=== PATIENT | male | born 1930 | race Caucasian/White ===

== ENCOUNTER 2017-03-28 22:03 | Emergency (ER) | payer MEDICARE, BC ==
[~2017-03-28] VITALS: Ht 177.8 cm; Wt 90.7 kg
--- NOTE | 2017-03-28 22:14 | NUR ---
BRIT VEGA AT BEDSIDE FOR EVAL.
--- NOTE | 2017-03-28 22:32 | NUR ---
radiology at bedside for l elbow xray.
[2017-03-28 22:47] LABS: CALCIUM, SERUM 9.6 mg/dL (8.5-10.1); CARBON DIOXIDE 27 mmol/L (21-32); CHLORIDE 106 mmol/L (98-107); CREATININE 0.7 mg/dL (0.6-1.3); GLUCOSE 119 mg/dL (74-106); POTASSIUM 3.9 mmol/L (3.5-5.1); SODIUM SERUM 141 mmol/L (136-145); UREA NITROGEN, BLOOD 27 mg/dL (7-18)
--- NOTE | 2017-03-28 22:47 | NUR ---
PT [facility] FOR HEAD AND C SPINE CT SCAN VIA [facility].
[2017-03-28 22:52] LABS: BASOPHILS % (AUTO) 0.4 % (0.0-2.0); EOSINOPHILS # (AUTO) 0.3 /CMM (0.0-0.7); HEMATOCRIT 33 % (39-51); LYMPHOCYTES # (AUTO) 1.4 /CMM (0.8-4.8); LYMPHOCYTES % (AUTO) 20.7 % (20.0-44.0); MEAN CORPUSCULAR HEMOGLOBIN 36 PG (26.0-33.0); MEAN CORPUSCULAR HGB CONC 34 g/dl (31.0-36.0); MEAN CORPUSCULAR VOLUME 105 fL (80-96); MONOCYTES # (AUTO) 0.6 /CMM (0.1-1.30); MONOCYTES % (AUTO) 9.2 % (2.0-12.0); NEUTROPHILS # (AUTO) 4.5 /CMM (1.8-8.9); NEUTROPHILS % (AUTO) 65.7 % (43.0-81.0); PLATELET COUNT (AUTO) 263 /CMM (150-450); RED BLOOD CELL COUNT(AUTO) 3.11 MIL/uL (4.5-6.0); WHITE BLOOD COUNT (AUTO) 6.8 K/uL (4.3-11.0)
--- NOTE | 2017-03-28 23:50 | NUR ---
REPORT TO CHARGE NURSE AMITA FOR ROSETTE.
--- NOTE | 2017-03-29 00:37 | NUR ---
CALLED [facility] FOR A TRANSFER ETA 45 MINUTES
--- NOTE | 2017-03-29 01:56 | NUR ---
PT REPORT GIVEN TO EMT, IV TAKEN OUT
[2017-03-29 02:02] VITALS: BP 130/76
== END 2017-03-29 02:03 | disposition home or self-care (01) ==
LOC: ER 22:06
DX: S09.90XA Unspecified injury of head, initial encounter (principal); S51.012A Laceration without foreign body of left elbow, initial encounter; S50.02XA Contusion of left elbow, initial encounter; E11.9 Type 2 diabetes mellitus without complications; W18.39XA Other fall on same level, initial encounter; Y93.89 Activity, other specified; Y92.89 Other specified places as the place of occurrence of the external cause; Y99.8 Other external cause status
CPT/HCPCS: 36415; 70450; 72125; 73080; 80048; 85025; 93005; 99285; A4606; Z7610

== ENCOUNTER 2017-05-01 15:33 | Inpatient (IN) | payer MEDICARE, BC ==
[~2017-05-01] VITALS: Ht 177.8 cm; Wt 90.7 kg
--- NOTE | 2017-05-01 15:55 | NUR ---
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 RESP IS EVEN AND UNLABORED WITH NAD NOTED. SKIN IS WARM AND DRY. DR LARA AT BS FOR EVAL.
[2017-05-01] MEDS ORDERED: LEVOFLOXACIN 750 MG /D5W 150ML PIGGYBACK IV ONE (16:00)
[2017-05-01] MEDS ORDERED: VANCOMYCIN 1 GM in IV D5W 250 ML IV ONE (16:00)
--- NOTE | 2017-05-01 16:03 | NUR ---
CALLED NURSE SUP FOR MED/SURG BED
--- NOTE | 2017-05-01 16:07 | NUR ---
201 MED/SURG ISOLATION
[2017-05-01 16:26] LABS: BASOPHILS # (AUTO) 0.1 /CMM (0.0-0.2); BASOPHILS % (AUTO) 0.8 % (0.0-2.0); EOSINOPHILS # (AUTO) 0.5 /CMM (0.0-0.7); EOSINOPHILS % (AUTO) 4.5 % (0.0-6.0); HEMATOCRIT 33 % (39-51); HEMOGLOBIN 10.7 g/dL (13.5-17.5); LYMPHOCYTES # (AUTO) 1.1 /CMM (0.8-4.8); LYMPHOCYTES % (AUTO) 10.2 % (20.0-44.0); MEAN CORPUSCULAR HEMOGLOBIN 35 PG (26.0-33.0); MEAN CORPUSCULAR HGB CONC 33 g/dl (31.0-36.0); MEAN CORPUSCULAR VOLUME 106 fL (80-96); MONOCYTES # (AUTO) 0.8 /CMM (0.1-1.30); MONOCYTES % (AUTO) 7.1 % (2.0-12.0); NEUTROPHILS # (AUTO) 8.5 /CMM (1.8-8.9); NEUTROPHILS % (AUTO) 77.4 % (43.0-81.0); PLATELET COUNT (AUTO) 266 /CMM (150-450); RDW COEFFICIENT OF VARIATION 18.2 (11.5-15.0); RED BLOOD CELL COUNT(AUTO) 3.09 MIL/uL (4.5-6.0)
--- NOTE | 2017-05-01 16:35 | NUR ---
Patient can't provided urine at this time. Patient refused straight cath. Dr Brady made aware.
[2017-05-01 16:39] LABS: CALCIUM, SERUM 8.7 mg/dL (8.5-10.1); CARBON DIOXIDE 27 mmol/L (21-32); CHLORIDE 105 mmol/L (98-107); CREATININE 0.9 mg/dL (0.6-1.3); GLUCOSE 141 mg/dL (74-106); POTASSIUM 3.8 mmol/L (3.5-5.1); SODIUM SERUM 141 mmol/L (136-145); UREA NITROGEN, BLOOD 25 mg/dL (7-18)
[2017-05-01 16:40] LABS: INR 0.98 (0.87-1.13); PROTHROMBIN TIME 10.2 SECS (9.5-12.7)
[2017-05-01 16:42] LABS: ALANINE AMINOTRANSFERASE 14 U/L (12-78); ALBUMIN 3.7 g/dL (3.4-5.0); ALKALINE PHOSPHATASE 85 U/L (46-116); ASPARTATE AMINOTRANSFERASE 7 U/L (15-37); BILIRUBIN,DIRECT 0.2 mg/dL (0.0-0.2); BILIRUBIN,TOTAL 0.7 mg/dL (0.2-1.0); TOTAL PROTEIN, SERUM 7.1 g/dL (6.4-8.2)
[2017-05-01] MEDS ORDERED: LEVOFLOXACIN 750 MG /D5W 150ML 150 ML IV ONE (16:57)
[2017-05-01] MEDS ORDERED: MAGNESIUM HYDROXIDE 30 ML UDC PO PRN (17:00)
[2017-05-01] MEDS ORDERED: ACETAMINOPHEN 325 MG TABLET PO PRN (17:00)
[2017-05-01] MEDS: DOCUSATE SODIUM 100 MG CAPSULE PO SCH (17:00)
[2017-05-01] MEDS ORDERED: ONDANSETRON HCL/PF 4 MG/2 ML VIAL IVP PRN (17:00)
[2017-05-01] MEDS ORDERED: ZOLPIDEM TARTRATE 5 MG TABLET PO PRN (17:00)
[2017-05-01] MEDS ORDERED: Z GUARD REMEDY 2 OZ OINT TP PRN (17:00)
[2017-05-01] MEDS ORDERED: HYDROCODONE/APAP 5/325MG 1 EACH TABLET PO PRN (17:00)
[2017-05-01] MEDS ORDERED: INSULIN REGULAR, HUMAN 100 UNIT/ML 3 ML VIAL SQ PRN (17:00)
[2017-05-01] MEDS ORDERED: DEXTROSE 50%-WATER 50 ML DISP.SYRIN IV PRN (17:00)
[2017-05-01] MEDS ORDERED: *INSULIN REGULAR(HUMULIN R)HUM 100 UNIT/ML VIAL SQ PRN (17:00)
[2017-05-01] MEDS ORDERED: MAG HYDROX/AL HYDROX/SIMETH 30 ML UDC PO PRN (17:00)
--- NOTE | 2017-05-01 17:03 | NUR ---
Report given to AYLIN Clemente for ROSETTE MS 201
[2017-05-01] MEDS ORDERED: GLIP10TA11 PO (17:06)
[2017-05-01] MEDS ORDERED: HYDR-548 PO (17:06)
[2017-05-01] MEDS ORDERED: AMAN100T PO (17:06)
[2017-05-01] MEDS ORDERED: ATOR40TA PO (17:06)
[2017-05-01] MEDS ORDERED: CARB-92 PO (17:06)
[2017-05-01] MEDS ORDERED: METF10002 PO (17:06)
[2017-05-01] MEDS ORDERED: APIX5TAB PO (17:06)
[2017-05-01] MEDS ORDERED: BENA10TA2 PO (17:06)
[2017-05-01] MEDS ORDERED: ATEN25TA PO (17:06)
[2017-05-01] MEDS ORDERED: FEE PK DOSING 1 MIN EA MC ONE (17:09)
[2017-05-01] MEDS: BLOOD SUGAR DIAGNOSTIC 1 EACH STRIP VI SCH ×2 (17:30→21:43)
[2017-05-01] MEDS ORDERED: IV NS 0.9% 1,000 ML BAG IV ONE (18:00)
[2017-05-01 18:30] VITALS: BP 123/56
--- NOTE | 2017-05-01 18:30 | NUR ---
ms associate attorney notes Admitted a 86 years old male patient from [place] via gurney accompanied by ER nurse who came in due to lower extremities cellulitis. Patient is alert and oriented x 3, verbally responsive and able to make needs known. Iv intact and patent with IVF infusing well. Skin assessment endorsed to next shift RN. No complaint of pain or discomfort at this time. On room air with 02 saturation 98%. Vital signs checked and recorded. Dr. Huntley put all admission orders in the patient profile. kept patient clean and comfortable in bed, call light with in patient reach, will continue to monitor accordingly.
[2017-05-01] MEDS: IV NS 0.9% 1,000 ML IV PRN (18:36)
[2017-05-01] MEDS: AMANTADINE HCL 100 MG CAPSULE PO SCH (18:36)
--- NOTE | 2017-05-01 19:30 | NUR ---
MS RN NOTE RECEIVED PATIENT AWAKE AND ALERT IN BED. NO PAIN OR DISCOMFORT NOTED. IV SITE INTACT WITH FLUIDS RUNNING ORDERED. SKIN CHECK DONE. PICTURES TAKEN AND PLACED IN CHART. WOUND CONSULT ORDERED. BED LOCKED AND IN LOWEST POSITION. SIDE RAILS UP, CALL LIGHT WITHIN REACH. WILL CONTINUE TO MONITOR.
[2017-05-01 20:00] VITALS: BP 129/67
--- NOTE | 2017-05-01 20:43 | NUR ---
ms rn note held iv fluids that were ordered for 1800. given in er. administered other order for NS @75ml/hr. patient stable. will continue to monitor.
[2017-05-01] MEDS: ATORVASTATIN 40 MG TABLET PO SCH (21:47)
[2017-05-01 22:00] VITALS: BP 129/67
[2017-05-02] MEDS ORDERED: VANCOMYCIN 1.25 GM in IV D5W 500 ML IV SCH (05:00)
[2017-05-02] MEDS: BLOOD SUGAR DIAGNOSTIC 1 EACH STRIP VI SCH ×4 (06:26→21:16)
--- NOTE | 2017-05-02 06:30 | NUR ---
MS RN NOTE PATIENT STABLE. ALL NEEDS MET AND ATTENDED TO. KEPT CLEAN, DRY, AND COMFORTABLE. WILL ENDORSE TO DAY SHIFT FOR ROSETTE.
[2017-05-02 06:58] LABS: BASOPHILS # (AUTO) 0.1 /CMM (0.0-0.2); EOSINOPHILS # (AUTO) 0.4 /CMM (0.0-0.7); EOSINOPHILS % (AUTO) 4.3 % (0.0-6.0); HEMATOCRIT 31 % (39-51); HEMOGLOBIN 10.3 g/dL (13.5-17.5); LYMPHOCYTES # (AUTO) 0.8 /CMM (0.8-4.8); LYMPHOCYTES % (AUTO) 9.8 % (20.0-44.0); MEAN CORPUSCULAR HEMOGLOBIN 35 PG (26.0-33.0); MEAN CORPUSCULAR HGB CONC 33 g/dl (31.0-36.0); MEAN CORPUSCULAR VOLUME 105 fL (80-96); MONOCYTES # (AUTO) 0.6 /CMM (0.1-1.30); MONOCYTES % (AUTO) 7.1 % (2.0-12.0); NEUTROPHILS # (AUTO) 6.7 /CMM (1.8-8.9); NEUTROPHILS % (AUTO) 77.8 % (43.0-81.0); PLATELET COUNT (AUTO) 263 /CMM (150-450); RDW COEFFICIENT OF VARIATION 18.1 (11.5-15.0); RED BLOOD CELL COUNT(AUTO) 2.95 MIL/uL (4.5-6.0); WHITE BLOOD COUNT (AUTO) 8.6 K/uL (4.3-11.0)
[2017-05-02 07:17] LABS: CALCIUM, SERUM 8.5 mg/dL (8.5-10.1); CARBON DIOXIDE 27 mmol/L (21-32); CHLORIDE 105 mmol/L (98-107); CREATININE 0.7 mg/dL (0.6-1.3); GLUCOSE 117 mg/dL (74-106); MAGNESIUM 1.9 mg/dL (1.8-2.4); PHOSPHORUS 3.2 mg/dL (2.5-4.9); POTASSIUM 3.8 mmol/L (3.5-5.1); SODIUM SERUM 140 mmol/L (136-145); UREA NITROGEN, BLOOD 20 mg/dL (7-18)
[2017-05-02 08:00] VITALS: BP 131/83
--- NOTE | 2017-05-02 08:00 | NUR ---
MS RN NOTES PATIENT IN BED RESTING ALERT, ORIENTED X2 . PERIPHERAL IV INTACT PATENT. BED IN LOW LOCKED POSITION. CALL LIGHT WITHIN REACH. WILL CONTINUE TO MONITOR.
[2017-05-02] MEDS: CARBIDOPA/LEVODOPA 10/100 MG 1 UDTAB PO SCH ×3 (08:42→16:31)
[2017-05-02] MEDS: AMANTADINE HCL 100 MG CAPSULE PO SCH ×2 (08:42→16:31)
[2017-05-02] MEDS: DOCUSATE SODIUM 100 MG CAPSULE PO SCH ×2 (08:42→16:30)
[2017-05-02] MEDS: BENAZEPRIL HCL 10 MG TABLET PO SCH (08:43)
[2017-05-02] MEDS: ATENOLOL 25 MG TABLET PO SCH ×2 (08:43→16:32)
[2017-05-02] MEDS: PANTOPRAZOLE 40 MG TABLET.DR PO SCH (08:46)
[2017-05-02] MEDS: APIXABAN 5 MG TABLET PO SCH ×2 (08:46→16:33)
--- NOTE | 2017-05-02 10:19 | NUR ---
WOUND CARE CONSULT: PT PRESENTS WITH LEFT ARM SKIN TEAR AND LEFT LOWER LEG WOUND, PRESENT ON ADMISSION. RECOMMENDATIONS MADE FOR WOUND CARE AND SKIN PROTECTION. DISCUSSED WITH NURSING STAFF. LOWER LEGS HAVE 3+ PITTING EDEMA, ESPECIALLY TO ANKLES AND FEET. LEGS ELEVATED. RECOMMEND SURGICAL CONSULT. PT ON PIOTR ISOFLEX LOW AIRLOSS BED. ALL SKIN PROTECTION MEASURES IN PLACE. WILL SEE PRN. MCINTOSH IN AGREEMENT WITH PLAN OF CARE. Addendum: 05/02/17 at 1024 by NOHEMI PAGE WNDNU Amended: Links added.
[2017-05-02 10:55] LABS: APPEARANCE,URINE TURBID (CLEAR); BILIRUBIN,URINE NEGATIVE (NEGATIVE); BLOOD, URINE NEGATIVE Ery/uL (NEGATIVE); COLOR,URINE YELLOW (YELLOW); KETONES,URINE TRACE (NEGATIVE); LEUKOCYTE ESTERASE ,URINE NEGATIVE (NEGATIVE); NITRITE, URINE NEGATIVE (NEGATIVE); PROTEIN,URINE NEGATIVE (NEGATIVE); UGLUCOSE NEGATIVE (NEGATIVE)
[2017-05-02 11:09] LABS: BACTERIA,URINE None seen /HPF (None Seen); RBC,URINE NONE SEEN /HPF (0-2); SQUAMOUS EPITHELIAL CELL,UR None Seen /HPF (None Seen); URINE AMORPHOUS PHOSPHATES Many /HPF (None Seen); WBC,URINE NONE SEEN /HPF (0-3)
--- NOTE | 2017-05-02 14:00 | NUR ---
MS RN NOTES PATIENT SEEN AND EVALUATED BY DR HUNTER ORDERS NOTED AND CARRIED OUT ORDERED.
[2017-05-02] MEDS: MUPIROCIN OINT 2% 22 GM TUBE SCH ×2 (14:45→21:15)
[2017-05-02 16:00] VITALS: BP 127/59
[2017-05-02] MEDS: VANCOMYCIN 1 GM in IV D5W 250 ML IV SCH (16:30)
--- NOTE | 2017-05-02 18:57 | NUR ---
MS RN NOTES PATIENT IN BED RESTING NO SOB OR ACUTE DISTRESS NOTED. ALL DUE MEDICATIONS ADMINISTERED ALL NEEDS MET. WILL ENDORSE ROSETTE TO PM SHIFT.
[2017-05-02 20:00] VITALS: BP_SYST 108; BP_SYST 127; BP_DIAS 59; BP_DIAS 61
--- NOTE | 2017-05-02 20:25 | NUR ---
MS RN NOTE RECEIVED PATIENT AWAKE AND ALERT IN BED. DENIES ANY PAIN OR DISCOMFORT. DRESSING TO WOUNDS C/D/I. IV SITE INTACT, WITH NO REDNESS OR INFILTRATION NOTED. BED LOCKED AND IN LOWEST POSITION. SIDE RAILS UP, CALL LIGHT WITHIN REACH. WILL CONTINUE TO MONITOR.
[2017-05-02] MEDS: ATORVASTATIN 40 MG TABLET PO SCH (21:15)
--- NOTE | 2017-05-02 22:00 | NUR ---
MS RN NOTE BLOOD SUGAR 159. PATIENT REFUSING INSULIN. STATES THAT HE DOESN'T USE IT. EXPLAINED ALL BENEFITS OF INSULIN. PATIENT CONTINUES TO REFUSE. WILL CONTINUE TO MONITOR.
[2017-05-03] MEDS: VANCOMYCIN 1 GM in IV D5W 250 ML IV SCH ×2 (05:05→17:36)
[2017-05-03] MEDS: BLOOD SUGAR DIAGNOSTIC 1 EACH STRIP VI SCH ×4 (06:10→22:04)
[2017-05-03] MEDS: IV NS 0.9% 1,000 ML IV PRN (06:10)
--- NOTE | 2017-05-03 06:25 | NUR ---
MS RN NOTE BLOOD SUGAR 149. PATIENT REFUSING INSULIN. EXPLAINED BENEFITS. CONTINUES TO REFUSE. ALL NEEDS MET AND ATTENDED TO. KEPT CLEAN, DRY AND COMFORTABLE. DRESSINGS INTACT. IV SITE INTACT WITH FLUIDS RUNNING ORDERED.
[2017-05-03 07:12] LABS: CALCIUM, SERUM 9.1 mg/dL (8.5-10.1); CARBON DIOXIDE 26 mmol/L (21-32); CHLORIDE 103 mmol/L (98-107); CREATININE 0.8 mg/dL (0.6-1.3); GLUCOSE 164 mg/dL (74-106); POTASSIUM 3.7 mmol/L (3.5-5.1); SODIUM SERUM 138 mmol/L (136-145); UREA NITROGEN, BLOOD 16 mg/dL (7-18)
[2017-05-03 08:00] VITALS: BP 131/69
--- NOTE | 2017-05-03 08:00 | NUR ---
MS RN NOTES PATIENT IN BED RESTING NO SOB OR ACUTE DISTRESS NOTED. PATIENT IN ISOLATION DUE TO MRSA OF WOUND AND NAIRS. PERIPHERAL IV INTACT PATENT ON LEFT WRIST. BED IN LOW LOCKED POSITION. CALL LIGHT WITHIN REACH. WILL CONTINUE TO MONITOR.
[2017-05-03] MEDS: AMANTADINE HCL 100 MG CAPSULE PO SCH ×2 (09:32→17:36)
[2017-05-03] MEDS: CARBIDOPA/LEVODOPA 10/100 MG 1 UDTAB PO SCH ×3 (09:33→17:36)
[2017-05-03] MEDS: APIXABAN 5 MG TABLET PO SCH ×2 (09:33→17:40)
[2017-05-03] MEDS: BENAZEPRIL HCL 10 MG TABLET PO SCH (09:33)
[2017-05-03] MEDS: DOCUSATE SODIUM 100 MG CAPSULE PO SCH ×2 (09:33→17:36)
[2017-05-03] MEDS: ATENOLOL 25 MG TABLET PO SCH ×2 (09:33→17:37)
[2017-05-03] MEDS: MUPIROCIN OINT 2% 22 GM TUBE SCH ×3 (09:34→20:56)
[2017-05-03] MEDS: PANTOPRAZOLE 40 MG TABLET.DR PO SCH (09:36)
[2017-05-03 16:00] VITALS: BP 142/69
--- NOTE | 2017-05-03 17:00 | NUR ---
MS RN NOTES PATIENT SEEN AND EVALUATED BY DR. HUNTER ORDERS NOTED AND CARRIED OUT.
--- NOTE | 2017-05-03 19:44 | NUR ---
MS RN NOTES PATIENT IN BED RESTING NO SOB OR ACUTE DISTRESS NOTED. PERIPHERAL IV ON LEFT WRIST INTACT PATENT. PATIENT ALERT, ORIENTED X3. ALL DUE MEDICATIONS ADMINISTERED ALL NEEDS MET. ENDORSED CARE TO PM SHIFT.
[2017-05-03 20:00] VITALS: BP 111/66
--- NOTE | 2017-05-03 20:00 | NUR ---
RN NOTES RECEIVED PATIENT IN BED, ALERT AND ORIENTED X3, ABLE TO MAKE NEEDS KNOWN, NO SOB, NO RESPIRATORY DISTRESS, TOLERATING ROOM AIR, SPO2 96%, DENIES ANY PAIN AT THIS TIME, ON FALL PRECAUTION, KEPT SAFE AND COMFORTABLE, CALL LIGHT WITHIN REACH.
[2017-05-03] MEDS: ATORVASTATIN 40 MG TABLET PO SCH (22:01)
[2017-05-04] MEDS: IV NS 0.9% 1,000 ML IV PRN (02:52)
[2017-05-04] MEDS: VANCOMYCIN 1 GM in IV D5W 250 ML IV SCH (04:11)
[2017-05-04] MEDS: BLOOD SUGAR DIAGNOSTIC 1 EACH STRIP VI SCH ×2 (06:31→12:16)
--- NOTE | 2017-05-04 06:38 | NUR ---
RN NOTES BG 122 MG/DL NO INSULIN COVERAGE
[2017-05-04 06:49] LABS: CALCIUM, SERUM 8.7 mg/dL (8.5-10.1); CARBON DIOXIDE 28 mmol/L (21-32); CHLORIDE 108 mmol/L (98-107); CREATININE 0.7 mg/dL (0.6-1.3); GLUCOSE 138 mg/dL (74-106); POTASSIUM 3.6 mmol/L (3.5-5.1); SODIUM SERUM 141 mmol/L (136-145); UREA NITROGEN, BLOOD 14 mg/dL (7-18)
--- NOTE | 2017-05-04 06:57 | NUR ---
RN NOTES PATIENT IS ALERT AND AWAKE, WITH EPISODES OF RESTLESSNESS, NO COMPLAIN OF PAIN AT THIS TIME, CHANGED DRESSING TO RIGHT ARM, GETTING OUT OF BED UNASSISTED, ON FALL PRECAUTION, ALL NEEDS ATTENDED, CALL LIGHT WITHIN REACH.
[2017-05-04 08:01] VITALS: BP 134/67
[2017-05-04] MEDS: CARBIDOPA/LEVODOPA 10/100 MG 1 UDTAB PO SCH ×2 (08:03→12:17)
[2017-05-04] MEDS: AMANTADINE HCL 100 MG CAPSULE PO SCH (08:04)
[2017-05-04] MEDS: APIXABAN 5 MG TABLET PO SCH (08:04)
[2017-05-04] MEDS: DOCUSATE SODIUM 100 MG CAPSULE PO SCH (08:04)
[2017-05-04] MEDS: PANTOPRAZOLE 40 MG TABLET.DR PO SCH (08:04)
[2017-05-04] MEDS: ATENOLOL 25 MG TABLET PO SCH (08:05)
[2017-05-04] MEDS: BENAZEPRIL HCL 10 MG TABLET PO SCH (08:05)
[2017-05-04] MEDS: MUPIROCIN OINT 2% 22 GM TUBE SCH ×2 (08:07→08:10)
--- NOTE | 2017-05-04 08:10 | NUR ---
M/S RN - Notes Wound treatment done on the left lower ext wound and left arm skin tear as ordered. Contact isolation maintained for MRSA nares and wound.
[2017-05-04 15:53] VITALS: BP 117/50
--- NOTE | 2017-05-04 16:36 | NUR ---
M/S RN - Discharge Patient alert and oriented throughout the shift, denies pain, not in any form of distress, discharged to [facility] in stable condition. Reviewed discharge instructions with Lizeth VIERA and she verbalized full understanding of all teachings including Vanco 1 gm IV Q12H x 14 days and to continue contact isolation for MRSA nares and wound. Discharge papers given to ambulance crew. Heplock removed on the right wrist with catheter tip intact, no swelling, no redness at the IV site. Patient refused photo to be taken on his left lower leg wound and left arm skin tear, became very agitated and angry. All belongings with the patient and he denies any missing items. Patient endorsed to the ambulance crew accordingly.
== END 2017-05-04 16:35 | DRG 603 ==
LOC: ER 15:35 → MEDSG2 16:47
PROVIDERS: ADMIT Internal Medicine; ATTEND Internal Medicine
DX: L03.116 Cellulitis of left lower limb (principal); D68.59 Other primary thrombophilia; G20 Parkinson's disease; I48.91 Unspecified atrial fibrillation; B95.62 Methicillin resistant Staphylococcus aureus infection as the cause of diseases classified elsewhere; E11.9 Type 2 diabetes mellitus without complications; E78.5 Hyperlipidemia, unspecified; I25.10 Atherosclerotic heart disease of native coronary artery without angina pectoris; Z79.84 Long term (current) use of oral hypoglycemic drugs; Z79.01 Long term (current) use of anticoagulants; Z85.850 Personal history of malignant neoplasm of thyroid; Z90.79 Acquired absence of other genital organ(s); R53.1 Weakness; S41.112A Laceration without foreign body of left upper arm, initial encounter; X58.XXXA Exposure to other specified factors, initial encounter; Y93.9 Activity, unspecified; Y92.89 Other specified places as the place of occurrence of the external cause; S81.802A Unspecified open wound, left lower leg, initial encounter; I10 Essential (primary) hypertension
CPT/HCPCS: 36415; 71010-TC; 80048-TC; 80076-TC; 80202-TC; 81000-TC; 82962-TC; 83605-TC; 83735-TC; 84100-TC; 85025-TC; 85730-TC; 87040-TC; 87081-TC; 87086-TC; A4606; J1815; J1956; J3370; J7030; J7060

== ENCOUNTER 2020-08-03 09:00 | Outpatient (CLI) | payer MEDICARE, BC ==
[~2020-08-03 09:00] MED LIST: AMAN100T PO; APIX5TAB PO; ATEN25TA PO; ATOR40TA PO; BENA10TA74 PO; CARB-92 PO; GLIP10TA11 PO; HYDR-4354 PO; METF-442 PO
[2020-08-03] MEDS ORDERED: MUPIROCIN 2% CREAM 15 GM TUBE TP ONE (09:54)
== END 2020-08-03 23:59 | disposition home health service (06) ==
LOC: WOU 09:00
PROVIDERS: ATTEND Podiatrist Foot & Ankle Surgery
DX: E11.621 Type 2 diabetes mellitus with foot ulcer (principal); L97.512 Non-pressure chronic ulcer of other part of right foot with fat layer exposed; E11.51 Type 2 diabetes mellitus with diabetic peripheral angiopathy without gangrene; Z79.84 Long term (current) use of oral hypoglycemic drugs; M20.21 Hallux rigidus, right foot; R60.0 Localized edema; G20 Parkinson's disease
CPT/HCPCS: 11042; 87070-TC; 87075-TC